=== PATIENT | female | born 1955 | race Native Hawaiian/Other Pacific Islander ===

== ENCOUNTER 2020-08-26 16:51 | Outpatient (CLI) | payer OTHER | END 2020-08-26 19:29 | disposition home or self-care (01) | LOC: RAD 16:51 | PROVIDERS: ATTEND Physician Assistant | DX: R07.89 Other chest pain (principal) ==

== ENCOUNTER 2021-09-17 10:53 | Outpatient (CLI) | payer OTHER | END 2021-09-17 18:59 | disposition home or self-care (01) | LOC: RAD 10:53 | PROVIDERS: ATTEND Physician Assistant | DX: R07.89 Other chest pain (principal) ==

== ENCOUNTER 2022-05-04 08:25 | Outpatient (CLI) | payer OTHER | END 2022-05-04 19:53 | disposition home or self-care (01) | LOC: RAD 08:25 | PROVIDERS: ATTEND Podiatrist | DX: Z13.820 Encounter for screening for osteoporosis (principal); M84.377A Stress fracture, right toe(s), initial encounter for fracture; N95.8 Other specified menopausal and perimenopausal disorders ==